=== PATIENT | female | born 1960 | race African-American/Black ===

== ENCOUNTER 2018-04-03 17:33 | Inpatient (IN) | payer MEDICAID ==
[~2018-04-03] VITALS: Ht 157.5 cm; Wt 81.2 kg
[2018-04-03] MEDS ORDERED: NITROGLYCERIN OINT 1GM/INCH UDPKT TD ONE (18:15)
[2018-04-03] MEDS ORDERED: ASPIRIN 81MG TABLET PO ONE (18:15)
[2018-04-03 19:32] LABS: BASOPHILS % 0.5 % (0.0-2.0); EOSINOPHILS % 1.7 % (0.0-5.0); HEMATOCRIT. 33.1 % (36.0-48.0); HEMOGLOBIN. 10.7 g/dL (12.0-16.0); LYMPHOCYTES % 13.1 % (20.0-50.0); MEAN CORPUSCULAR HEMOGLOBIN 31.1 pg (28.0-32.0); MEAN CORPUSCULAR VOLUME 96.5 fL (81.0-99.0); MEAN PLATELET VOLUME 8.9 fl (7.4-10.4); MONOCYTES % 2.6 % (2.0-8.0); NEUTROPHILS % 82.1 % (40.0-76.0); PLATELET 232 x1000/uL (130-400); RED BLOOD CELL COUNT 3.43 mill/uL (4.2-5.4); RED CELL DISTRIBUTION WIDTH 14.4 % (11.6-14.6)
[2018-04-03 19:40] LABS: CHLORIDE 114 mEq/L (98-107); PARTIAL THROMBOPLASTIN TIME 27.7 sec (23.4-31.0); PROTHROMBIN TIME 9.7 sec (9.1-11.1)
[2018-04-03] MEDS: MORPHINE SULFATE 4 MG/ML CPJ (NOT FOR IM USE) IV ONE ×2 (21:55→23:03)
[2018-04-03] MEDS ORDERED: HYDRALAZINE 20MG/ML VIAL IV ONE (23:15)
[2018-04-03] MEDS ORDERED: FUROSEMIDE 40MG/4ML VIAL IVP ONE (23:30)
[2018-04-04] VITALS (7 sets, daily range): BP systolic 153–210; BP diastolic 69–103
[2018-04-04] MEDS ORDERED: HYDR100T31 MT (01:34)
[2018-04-04] MEDS ORDERED: MIRT15TA MT (01:34)
[2018-04-04] MEDS ORDERED: OXYC-105 MT (01:34)
[2018-04-04] MEDS ORDERED: GABA-529 MT (01:34)
[2018-04-04] MEDS ORDERED: CLOP75TA16 MT (01:34)
[2018-04-04] MEDS ORDERED: DEXTROSE 50% WATER 50ML SYRINGE IV PRN ×2 (02:15→02:45)
[2018-04-04] MEDS ORDERED: GUAIFENESIN 200MG/10ML SUGAR FREE UDC PO PRN (02:15)
[2018-04-04] MEDS ORDERED: ACETAMINOPHEN 325MG TABLET PO PRN (02:15)
[2018-04-04] MEDS ORDERED: IPRATROPIUM/ALBUTEROL 0.5-3(2.5)MG/3ML NEB INH PRN (02:15)
[2018-04-04] MEDS: HYDROCODONE/APAP 7.5/325MG 1 TAB TABLET PO PRN ×4 (03:00→22:30)
[2018-04-04] MEDS ORDERED: HYDRALAZINE HCL 50MG TABLET PO SCH (04:00)
[2018-04-04] MEDS: HYDRALAZINE 20MG/ML VIAL IV PRN (05:19)
[2018-04-04] MEDS: NITROGLYCERIN OINT 1GM/INCH UDPKT TD SCH ×3 (06:43→21:42)
[2018-04-04] MEDS: BLOOD SUGAR DIAGNOSTIC STRIP TEST SCH ×4 (06:43→21:39)
[2018-04-04] MEDS: SODIUM CHLORIDE 0.9% INJ 3ML FLUSH IVF SCH ×3 (06:44→21:40)
[2018-04-04] MEDS ORDERED: INSULIN LISPRO 100 UNITS/ML SUBCUT SCH (07:50)
[2018-04-04] MEDS: FUROSEMIDE 40MG/4ML VIAL IVP SCH (08:35)
[2018-04-04] MEDS: CLOPIDOGREL 75MG TABLET PO SCH (08:35)
[2018-04-04] MEDS: ENOXAPARIN 30MG/0.3ML SYR SUBCUT SCH (08:35)
[2018-04-04] MEDS: INSULIN LISPRO 100 UNITS/ML SUBCUT SCH ×4 (08:46→21:50)
[2018-04-04] MEDS: CLONIDINE 0.1MG TABLET PO PRN (15:56)
[2018-04-04] MEDS ORDERED: METOLAZONE 10MG TABLET PO NR (18:00)
[2018-04-04] MEDS: ASPIRIN 81MG EC TABLET PO SCH (18:06)
[2018-04-04] MEDS: HYDRALAZINE HCL 100MG TABLET PO SCH (21:38)
[2018-04-04] MEDS: METOPROLOL TARTRATE 25MG TABLET PO SCH (21:38)
[2018-04-04] MEDS: LISINOPRIL 10MG TABLET PO SCH (21:38)
[2018-04-04] MEDS: ATORVASTATIN CALCIUM 40MG TABLET PO SCH (21:39)
[2018-04-04] MEDS: AMLODIPINE 5MG TABLET PO SCH (21:40)
[2018-04-05] VITALS (8 sets, daily range): BP systolic 145–180; BP diastolic 63–80
[2018-04-05 01:59] LABS: CLARITY URINE CLOUDY (CLEAR); COLOR URINE YELLOW (YELLOW); KETONES URINE NEGATIVE (NEGATIVE); LEUKOCYTE ESTERASE URINE NEGATIVE (NEGATIVE); NITRITE URINE NEGATIVE (NEGATIVE); OCCULT BLOOD URINE NEGATIVE (NEGATIVE); PH URINE 5.5 (4.5-8.0); PROTEIN URINE 3+ (NEGATIVE); SPECIFIC GRAVITY URINE 1.014 (1.005-1.030); UROBILINOGEN URINE 0.2 E.U./dL (0.2-1.0)
[2018-04-05 02:09] LABS: *AMPHETAMINES SCREEN URINE NEGATIVE (NEGATIVE); *BARBITURATES SCREEN URINE NEGATIVE (NEGATIVE)
[2018-04-05 02:10] LABS: *BENZODIAZEPINES SCREEN URINE NEGATIVE (NEGATIVE); *COCAINE SCREEN URINE NEGATIVE (NEGATIVE); METHADONE URINE SCREEN NEGATIVE (NEGATIVE); OPIATES URINE SCREEN PRESUMTIVE POSITIVE (NEGATIVE); PHENCYCLIDINE URINE SCREEN NEGATIVE (NEGATIVE)
[2018-04-05 02:11] LABS: CANNABINOID URINE SCREEN NEGATIVE (NEGATIVE)
[2018-04-05] MEDS: SODIUM CHLORIDE 0.9% INJ 3ML FLUSH IVF SCH ×3 (05:27→21:35)
[2018-04-05] MEDS: NITROGLYCERIN OINT 1GM/INCH UDPKT TD SCH ×3 (05:27→21:36)
[2018-04-05] MEDS: HYDRALAZINE HCL 100MG TABLET PO SCH ×3 (06:13→21:34)
[2018-04-05] MEDS: BLOOD SUGAR DIAGNOSTIC STRIP TEST SCH ×4 (06:21→21:35)
[2018-04-05 07:04] LABS: BASOPHILS % 0.3 % (0.0-2.0); EOSINOPHILS % 4.1 % (0.0-5.0); HEMATOCRIT. 26.3 % (36.0-48.0); HEMOGLOBIN. 8.7 g/dL (12.0-16.0); LYMPHOCYTES % 28.4 % (20.0-50.0); MEAN CORPUSCULAR VOLUME 93.2 fL (81.0-99.0); MEAN PLATELET VOLUME 9.2 fl (7.4-10.4); MONOCYTES % 5.8 % (2.0-8.0); NEUTROPHILS % 61.4 % (40.0-76.0); PLATELET 194 x1000/uL (130-400); RED BLOOD CELL COUNT 2.82 mill/uL (4.2-5.4); RED CELL DISTRIBUTION WIDTH 14.3 % (11.6-14.6)
[2018-04-05] MEDS: INSULIN LISPRO 100 UNITS/ML SUBCUT SCH ×4 (07:50→21:35)
[2018-04-05] MEDS: FUROSEMIDE 40MG/4ML VIAL IVP SCH (08:55)
[2018-04-05] MEDS: AMLODIPINE 5MG TABLET PO SCH ×2 (08:55→21:35)
[2018-04-05] MEDS: CLOPIDOGREL 75MG TABLET PO SCH (08:56)
[2018-04-05] MEDS: ASPIRIN 81MG EC TABLET PO SCH (08:56)
[2018-04-05] MEDS: METOPROLOL TARTRATE 25MG TABLET PO SCH (08:56)
[2018-04-05] MEDS: LISINOPRIL 10MG TABLET PO SCH (08:56)
[2018-04-05] MEDS: ENOXAPARIN 30MG/0.3ML SYR SUBCUT SCH (08:57)
[2018-04-05] MEDS: HYDROCODONE/APAP 7.5/325MG 1 TAB TABLET PO PRN ×2 (09:25→14:39)
[2018-04-05] MEDS: HYDRALAZINE 20MG/ML VIAL IV PRN (13:19)
[2018-04-05] MEDS: CLONIDINE 0.1MG TABLET PO SCH ×2 (15:51→21:34)
[2018-04-05] MEDS: PREGABALIN 75MG CAPSULE PO SCH (17:48)
[2018-04-05] MEDS: CLONIDINE 0.1MG TABLET PO PRN (19:12)
[2018-04-05] MEDS: ATORVASTATIN CALCIUM 40MG TABLET PO SCH (21:33)
[2018-04-05] MEDS: METOPROLOL TARTRATE 50MG TABLET PO SCH (21:34)
[2018-04-05] MEDS: LISINOPRIL 20MG TABLET PO SCH (21:34)
[2018-04-06] VITALS (8 sets, daily range): BP systolic 20–178; BP diastolic 52–134
[2018-04-06] MEDS: CLONIDINE 0.1MG TABLET PO SCH ×3 (05:11→21:42)
[2018-04-06] MEDS: HYDRALAZINE HCL 100MG TABLET PO SCH ×3 (05:11→21:42)
[2018-04-06] MEDS: SODIUM CHLORIDE 0.9% INJ 3ML FLUSH IVF SCH ×3 (05:12→21:43)
[2018-04-06] MEDS: NITROGLYCERIN OINT 1GM/INCH UDPKT TD SCH ×3 (05:12→21:43)
[2018-04-06] MEDS: BLOOD SUGAR DIAGNOSTIC STRIP TEST SCH ×4 (06:55→20:13)
[2018-04-06] MEDS: ASPIRIN 81MG EC TABLET PO SCH (08:15)
[2018-04-06] MEDS: LISINOPRIL 20MG TABLET PO SCH ×2 (08:15→20:47)
[2018-04-06] MEDS: FUROSEMIDE 40MG/4ML VIAL IVP SCH (08:15)
[2018-04-06] MEDS: METOPROLOL TARTRATE 50MG TABLET PO SCH ×2 (08:15→20:47)
[2018-04-06] MEDS: CLOPIDOGREL 75MG TABLET PO SCH (08:15)
[2018-04-06] MEDS: AMLODIPINE 5MG TABLET PO SCH ×2 (08:16→20:47)
[2018-04-06] MEDS: HYDROCODONE/APAP 7.5/325MG 1 TAB TABLET PO PRN ×2 (08:18→16:05)
[2018-04-06] MEDS: PREGABALIN 75MG CAPSULE PO SCH ×2 (08:18→20:46)
[2018-04-06] MEDS: INSULIN LISPRO 100 UNITS/ML SUBCUT SCH ×4 (08:29→20:48)
[2018-04-06] MEDS: ENOXAPARIN 30MG/0.3ML SYR SUBCUT SCH (09:00)
[2018-04-06] MEDS: ATORVASTATIN CALCIUM 40MG TABLET PO SCH (20:46)
[2018-04-07 04:00] VITALS: BP 159/71
[2018-04-07] MEDS: HYDROCODONE/APAP 7.5/325MG 1 TAB TABLET PO PRN ×2 (04:55→12:33)
[2018-04-07] MEDS: BLOOD SUGAR DIAGNOSTIC STRIP TEST SCH ×2 (05:47→12:32)
[2018-04-07] MEDS: NITROGLYCERIN OINT 1GM/INCH UDPKT TD SCH (05:47)
[2018-04-07] MEDS: HYDRALAZINE HCL 100MG TABLET PO SCH (05:47)
[2018-04-07] MEDS: CLONIDINE 0.1MG TABLET PO SCH (05:47)
[2018-04-07] MEDS: SODIUM CHLORIDE 0.9% INJ 3ML FLUSH IVF SCH (05:49)
[2018-04-07] MEDS: INSULIN LISPRO 100 UNITS/ML SUBCUT SCH ×2 (05:57→13:31)
[2018-04-07 07:47] VITALS: BP 142/62
[2018-04-07] MEDS: ENOXAPARIN 30MG/0.3ML SYR SUBCUT SCH (09:00)
[2018-04-07] MEDS: PREGABALIN 75MG CAPSULE PO SCH (09:03)
[2018-04-07] MEDS: CLOPIDOGREL 75MG TABLET PO SCH (09:03)
[2018-04-07] MEDS: AMLODIPINE 5MG TABLET PO SCH (09:03)
[2018-04-07] MEDS: LISINOPRIL 20MG TABLET PO SCH (09:03)
[2018-04-07] MEDS: METOPROLOL TARTRATE 50MG TABLET PO SCH (09:04)
[2018-04-07] MEDS: ASPIRIN 81MG EC TABLET PO SCH (09:04)
[2018-04-07] MEDS: FUROSEMIDE 40MG/4ML VIAL IVP SCH (09:04)
[2018-04-07 12:24] VITALS: BP 117/54
[2018-04-07 12:33] VITALS: BP 117/54
== END 2018-04-07 15:52 | disposition home or self-care (01) | DRG 194 ==
LOC: ER 17:33 → 6WST 21:55 → ENRESERV 22:26
PROVIDERS: ADMIT Internal Medicine; ATTEND Internal Medicine
DX: I13.0 Hypertensive heart and chronic kidney disease with heart failure and stage 1 through stage 4 chronic kidney disease, or unspecified chronic kidney disease (principal); E43 Unspecified severe protein-calorie malnutrition; E11.22 Type 2 diabetes mellitus with diabetic chronic kidney disease; I24.9 Acute ischemic heart disease, unspecified; G89.4 Chronic pain syndrome; E78.5 Hyperlipidemia, unspecified; J44.9 Chronic obstructive pulmonary disease, unspecified; N18.9 Chronic kidney disease, unspecified; I50.43 Acute on chronic combined systolic (congestive) and diastolic (congestive) heart failure; E11.40 Type 2 diabetes mellitus with diabetic neuropathy, unspecified; I25.10 Atherosclerotic heart disease of native coronary artery without angina pectoris; I69.354 Hemiplegia and hemiparesis following cerebral infarction affecting left non-dominant side; Z79.82 Long term (current) use of aspirin; Z79.02 Long term (current) use of antithrombotics/antiplatelets; I25.2 Old myocardial infarction; Z82.49 Family history of ischemic heart disease and other diseases of the circulatory system; Z91.14 Patient's other noncompliance with medication regimen; Z83.3 Family history of diabetes mellitus; Z98.61 Coronary angioplasty status; Z79.899 Other long term (current) drug therapy; Z68.32 Body mass index [BMI] 32.0-32.9, adult
CPT/HCPCS: 36415; 71045; 80048; 80061; 80305; 82962; 83036; 83735; 83880; 84484; 93005; 93306; 93970; 96374; 96375; 99285; C1893; J0360; J1650; J1815; J1940; J2270